=== PATIENT | male | born 1955 | race Caucasian/White ===

== ENCOUNTER → 2016-07-30 | Outpatient (REF) | payer BC, OTHER ==
[2016-08-02 00:08] LABS: Lyme Disease IgG/IgM Antibodie <0.91 ISR (0.00-0.90); Lyme Disease IgM Ab Quantitati <0.80 index (0.00-0.79)
== END ==
LOC: M LAB REF 16:39
PROVIDERS: ATTEND Internal Medicine
DX: M25.50 Pain in unspecified joint (principal)

== ENCOUNTER → 2017-02-03 | Outpatient (REF) | payer BC, OTHER ==
[2017-02-07 00:06] LABS: Lyme Disease IgG/IgM Antibodie <0.91 ISR (0.00-0.90); Lyme Disease IgM Ab Quantitati <0.80 index (0.00-0.79)
== END ==
LOC: M LAB REF 17:24
PROVIDERS: ATTEND Internal Medicine
DX: M25.50 Pain in unspecified joint (principal)

== ENCOUNTER → 2017-08-05 | Outpatient (REF) | payer BC, OTHER ==
[2017-08-08 00:06] LABS: Lyme Disease IgG/IgM Antibodie <0.91 ISR (0.00-0.90); Lyme Disease IgM Ab Quantitati <0.80 index (0.00-0.79)
== END ==
LOC: M LAB REF 17:12
DX: M25.50 Pain in unspecified joint (principal)
CPT/HCPCS: 86617

== ENCOUNTER → 2018-02-09 | Outpatient (REF) | payer BC, OTHER ==
[2018-02-11 00:06] LABS: Lyme Disease IgG/IgM Antibodie <0.91 ISR (0.00-0.90); Lyme Disease IgM Ab Quantitati <0.80 index (0.00-0.79)
== END ==
LOC: M LAB REF 14:50
DX: Z11.59 Encounter for screening for other viral diseases (principal)
CPT/HCPCS: 86617

== ENCOUNTER → 2018-03-18 | Outpatient (REF) | payer BC, OTHER | LOC: M LAB REF 13:33 | DX: N39.0 Urinary tract infection, site not specified (principal) | CPT/HCPCS: 87186 ==

== ENCOUNTER → 2018-08-18 | Outpatient (REF) | payer BC, OTHER ==
[2018-08-21 00:06] LABS: Lyme Disease IgG/IgM Antibodie <0.91 ISR (0.00-0.90); Lyme Disease IgM Ab Quantitati <0.80 index (0.00-0.79)
== END ==
LOC: M LAB REF 16:37
PROVIDERS: ATTEND Internal Medicine
DX: Z11.59 Encounter for screening for other viral diseases (principal)

== ENCOUNTER → 2018-08-27 | Outpatient (CLI) | payer MEDICARE, BC ==
--- NOTE | 2018-09-01 06:52 | SLEEPCENT ---
DATE OF PROCEDURE: 08/27/2018 ORDERED BY: Christi Ryan Nocturnal polysomnography was performed for evaluation of sleep physiology. 7 hours and 8 minutes of data were reviewed. There were 295 minutes of sleep identified. Sleep latency was prolonged at 25.5 minutes. Rapid eye movement (REM) latency was short at 70 minutes. Sleep architecture showed poor progression and fragmentation due to respiratory events. Overall sleep efficiency was 70.1%. The electrocardiogram showed a sinus rhythm with occasional PVCs and average heart rate 58 beats per minute. Electroencephalogram (EEG) showed reasonably normal waveforms for awake and sleep stages. There were 39 respiratory events identified of 10 seconds in duration or greater for an apnea-hypopnea index of 7.9. The events were associated with oxygen desaturation into the 70s. Having established the presence of obstructive sleep apnea syndrome, testing was stopped shortly before midnight for the application of pressure therapy. The patient was fit with a ResMed Quattro full face mask of medium size and 4 cm of water pressure were applied to the circuit and the lights were then extinguished. After a period of accommodation, he did reestablish sleep and there were 2 REM cycles noted. CPAP pressure of +12 was found to be sufficient to address respiratory events. Some limb activity was noted with a background limb movement arousal index of 5.7. IMPRESSION: Obstructive sleep apnea syndrome (G47.33). RECOMMENDATION: Nightly use of pressure therapy at 12 cm of water.
== END ==
LOC: M SLEEP 19:52
PROVIDERS: ATTEND Nurse Practitioner Adult Health
DX: G47.33 Obstructive sleep apnea (adult) (pediatric) (principal)

== ENCOUNTER → 2019-02-18 | Outpatient (REF) | payer MEDICARE, BC ==
[2019-02-20 00:06] LABS: Lyme Disease IgG/IgM Antibodie <0.91 ISR (0.00-0.90); Lyme Disease IgM Ab Quantitati <0.80 index (0.00-0.79)
== END ==
LOC: M LAB REF 12:19
PROVIDERS: ATTEND Internal Medicine
DX: Z11.59 Encounter for screening for other viral diseases (principal)

== ENCOUNTER → 2021-01-31 | Outpatient (CLI) | payer MEDICARE, BC ==
[~2021-01-31] MED LIST: ATOR1TAB21; ECOT81TA5 PO; METF750T36; TAMS1CAP17
== END ==
LOC: M LABSMTC 09:41
PROVIDERS: ATTEND Anesthesiology
DX: Z11.52 Encounter for screening for COVID-19 (principal)

== ENCOUNTER 2021-02-01 07:47 | Day surgery (SDC) | payer MEDICARE, BC ==
[~2021-02-01] VITALS: Ht 167.6 cm; Wt 91.4 kg
[~2021-02-01 07:47] MED LIST changes: +NS 1,000 ML IV ONE
[2021-02-01] MEDS ORDERED: LIDOCAINE 2% 100MG/5ML SDV (FOR ANES.) As Ordered ONE (07:57)
[2021-02-01] MEDS ORDERED: propofoL 200 MG/20 ML VIAL As Ordered ONE (07:58)
--- NOTE | 2021-02-01 09:05 | ROOR ---
Patient Name: Al Brown Procedure Date: 02/01/2021 8:50 AM Date of : 1955 Age: 65 Room: [facility] Gender: Male Note Status: Finalized Procedure: Colonoscopy Indications: High risk colon cancer surveillance: Personal history of colonic polyps Providers: Benjy Martinez Jr, MD Referring MD: GIBSON CERDA JR, MD Requesting Provider: Medicines: Propofol per Anesthesia Complications: No immediate complications. Procedure: Pre-Anesthesia Assessment: - Prior to the procedure, a History and Physical was performed, and patient medications and allergies were reviewed. The patient is competent. The risks and benefits of the procedure and the sedation options and risks were discussed with the patient. All questions were answered and informed consent was obtained. Patient identification and proposed procedure were verified by the physician and the nurse in the pre-procedure area and in the procedure room. Mental Status Examination: alert and oriented. Airway Examination: normal oropharyngeal airway and neck mobility. Respiratory Examination: clear to auscultation. CV Examination: normal. ASA Grade Assessment: II - A patient with mild systemic disease. After reviewing the risks and benefits, the patient was deemed in satisfactory condition to undergo the procedure. The anesthesia plan was to use moderate sedation / analgesia (conscious sedation). Immediately prior to administration of medications, the patient was re-assessed for adequacy to receive sedatives. The heart rate, respiratory rate, oxygen saturations, blood pressure, adequacy of pulmonary ventilation, and response to care were monitored throughout the procedure. The physical status of the patient was re-assessed after the procedure. The Colonoscope was introduced through the anus and advanced to the cecum, identified by appendiceal orifice and ileocecal valve. The colonoscopy was performed without difficulty. The patient tolerated the procedure well. The quality of the bowel preparation was adequate. Findings: The rectum, recto-sigmoid colon, descending colon, transverse colon, ascending colon, cecum, appendiceal orifice and ileocecal valve appeared normal. A few small and large-mouthed diverticula were found in the sigmoid colon. Impression: - The rectum, recto-sigmoid colon, descending colon, transverse colon, ascending colon, cecum, appendiceal orifice and ileocecal valve are normal. - Diverticulosis in the sigmoid colon. - No specimens collected. Recommendation: - Discharge patient to home (ambulatory). - Repeat colonoscopy in 5 years for surveillance. Procedure Code(s): --- Professional --- 75211, Colonoscopy, flexible; diagnostic, including collection of specimen(s) by brushing or washing, when performed (separate procedure) Diagnosis Code(s): --- Professional --- Z86.010, Personal history of colonic polyps K57.30, Diverticulosis of large intestine without perforation or abscess without bleeding CPT copyright 2019 [employer]. All rights reserved. The codes documented in this report are preliminary and upon vp data review may be revised to meet current compliance requirements. Benjy Martinez MD Benjy Martinez Jr, MD 02/01/2021 9:04:40 AM Electronically signed by Benjy Martinez Jr, MD Number of Addenda: 0 Note Initiated On: 02/01/2021 8:50 AM Estimated Blood Loss: Estimated blood loss: none.
[2021-02-01 09:27] VITALS: BP 120/77
== END 2021-02-01 09:31 | disposition home or self-care (01) ==
LOC: M OPP 07:47
PROVIDERS: ATTEND Surgery
DX: Z12.11 Encounter for screening for malignant neoplasm of colon (principal); Z86.010 Personal history of colon polyps; K57.30 Diverticulosis of large intestine without perforation or abscess without bleeding; Z79.82 Long term (current) use of aspirin; Z79.84 Long term (current) use of oral hypoglycemic drugs; Z79.899 Other long term (current) drug therapy

== ENCOUNTER → 2021-04-02 | Outpatient (REF) | payer MEDICARE, BC ==
[~2021-04-02] MED LIST changes: -NS 1,000 ML IV ONE
== END ==
LOC: M LAB REF 16:12
PROVIDERS: ATTEND Internal Medicine
DX: Z11.59 Encounter for screening for other viral diseases (principal)

== ENCOUNTER → 2021-10-03 | Outpatient (REF) | payer MEDICARE, BC | LOC: M LAB REF 12:09 | PROVIDERS: ATTEND Internal Medicine | DX: Z11.59 Encounter for screening for other viral diseases (principal) ==

== ENCOUNTER → 2022-12-18 | Outpatient (REF) | payer MEDICARE, BC | LOC: M LAB REF 12:27 | PROVIDERS: ATTEND Internal Medicine | DX: Z11.59 Encounter for screening for other viral diseases (principal) ==

== ENCOUNTER → 2023-06-17 | Outpatient (REF) | payer MEDICARE, BC | LOC: M LAB REF 12:01 | PROVIDERS: ATTEND Internal Medicine | DX: Z11.59 Encounter for screening for other viral diseases (principal) ==

== ENCOUNTER → 2023-12-16 | Outpatient (REF) | payer MEDICARE | LOC: M LAB REF 16:35 | PROVIDERS: ATTEND Internal Medicine | DX: Z11.59 Encounter for screening for other viral diseases (principal) ==

== ENCOUNTER → 2025-05-16 | Outpatient (REF) | payer MEDICARE, BC ==
[2025-05-20 20:57] LABS: LYME TOTAL ANTIBODY CIA <= 0.90 Index (<=0.90)
== END ==
LOC: M LAB REF 17:27
PROVIDERS: ATTEND Internal Medicine
DX: Z11.59 Encounter for screening for other viral diseases (principal)